=== PATIENT | female | born 1995 | race Caucasian/White ===

== ENCOUNTER 2017-03-28 07:22 | Emergency (ER) | payer BC, MEDICAID ==
[~2017-03-28 07:22] MED LIST: ACCUNEB DP0.63 MG/3 IH; AZITHROMYCIN500 MG PO; DELTASONE DPS20 MG PO; DULERA 200/58.8 GM IH; DUONEB DPS3 ML IH; MONTELUKAST SOD10 MG PO; ROBITUSSIN100 MG/5 M PO
--- NOTE | 2017-03-31 16:27 | ER ---
ADMIT: 03/28/2017 RM/LOC: ER [facility] MR#: [id number] [address] [address] [place] [address] Emergency Room Report SEX: F AGE: 22 : 1995 DATE: 03/28/2017 ADDENDUM: A 22-year-old female with history of asthma who comes in, it has been going on for about a day now. She does feel like this is her previous asthma symptoms. She does get some relief with albuterol, but says her symptoms come back about an hour to 2 hours, and she has required to use albuterol again. She has been on steroids in the past several times for asthma and she has actually been admitted a few times before. She has no other cold symptoms. On physical exam, she is not in any respiratory distress. She has very slightly decreased breath sounds with some wheezes throughout the upper lobes. She was given DuoNeb here and Solu-Medrol and her symptoms are significantly improved. She just feels like going home. She will be discharged home with prescription for albuterol nebs, which she can use in addition to her albuterol inhaler when she is home. She is to use prednisone b.i.d. for the next 5 days and take her singular. She can return to the ER for any worsening symptoms and follow up with Dr. Lange in the next week. Estuardo Lau MD/ samm JOB #: [id number] CC: Estuardo Lau MD, Attending Physician Bang Lange MD, Family Physician
== END 2017-03-28 08:30 | disposition home or self-care (01) ==
LOC: ER 07:22
DX: J45.901 Unspecified asthma with (acute) exacerbation (principal); Z90.49 Acquired absence of other specified parts of digestive tract; Z90.89 Acquired absence of other organs; Z79.899 Other long term (current) drug therapy

== ENCOUNTER 2017-03-31 22:04 | Emergency (ER) | payer BC, MEDICAID ==
--- NOTE | 2017-04-09 16:41 | ER ---
ADMIT: 03/31/2017 RM/LOC: ER [facility] MR#: [id number] [facility] [address] [place] [address] Emergency Room Report SEX: F AGE: 22 : 1995 DATE: 03/31/2017 ADDENDUM: This patient comes into the ER because she has had cold-type symptoms for the last couple days, has been blowing her nose. Now, she has severe pain in her right ear that she rates as a 10/10. On physical exam, her TM is bright red and bulging. She has mild cervical lymphadenopathy in the right cervical chain. I wrote a prescription for amoxicillin, and she was given Percocet in the ER. Please see my T-sheet. JOSE A Hinds / Roe Valles MD / samm JOB #: [id number] CC: Roe Valles MD, Attending Physician Bang Lange MD, Family Physician
== END 2017-03-31 22:55 | disposition home or self-care (01) ==
LOC: ER 22:04
DX: H66.91 Otitis media, unspecified, right ear (principal); J45.909 Unspecified asthma, uncomplicated; Z79.899 Other long term (current) drug therapy